=== PATIENT | male | born 1995 | race Caucasian/White ===

== ENCOUNTER → 2016-10-24 | Outpatient (CLI) | payer OTHER ==
--- NOTE | 2016-10-24 09:02 | US ---
EXAMINATION TYPE: US renal artery duplex complet DATE OF EXAM: 10/24/2016 COMPARISON: NONE CLINICAL HISTORY: I10 Essential Hypertension. HTN x 2 years MEASUREMENTS: RENAL SIZE: Rt Kidney: 10.0 x 4.9 x 4.4cm Lt Kidney: 11.7 x 4.2 x 5.4cm RESISTANCE INDEX Right: 0.56 Left: 0.53 RA/AO RATIO (< 3.5 ) Right: 1.0 Left: 0.9 RA VELOCITY ( < 180 cm/s) Right: 137.8cm/s Left: 125.6cm/s Aorta and renals appear unremarkable. No evidence of renal artery stenosis. Good upstroke at segmenta ls at hilum. Low resistive waveforms noted throughout. IMPRESSION: No evidence of renal artery stenosis.
== END | disposition home or self-care (01) ==
LOC: RADUSWWP 10-21 15:16
PROVIDERS: ATTEND Family Medicine
DX: I10 Essential (primary) hypertension (principal)
CPT/HCPCS: 93975

== ENCOUNTER → 2016-11-24 | Outpatient (CLI) | payer OTHER ==
--- NOTE | 2016-11-24 16:16 | CONS ---
DATE OF CONSULTATION: 11/24/16 21 year old gentleman has been evaluated in the [facility] for difficulties to initiate and maintain sleep. History of present illness/Sleep wake evaluation: SLEEP SCHEDULE: The patient usually goes to bed around 11 or midnight and falls asleep around midnight, sleeps until 9 a.m. on working days and from around 2 a.m. until 10:30 a.m. on weeks. FALLING ASLEEP: It takes him about 1 1/2 hours to fall asleep after he goes to bed. He does not watch t.v. in bedroom. DURING SLEEP: He prefers to sleep on the stomach position. He wakes up from sleep three times. Nobody did not tell him about snoring or changing breathing during sleep although the patient wakes up with dry mouth sometimes and gasping for air. Positive history of panic attack, palpitations, heartburn and sweating. DURING THE DAY/WAKE STATE: The patient experiencing symptoms of restless legs in the evening and at bedtime. Sometimes he needs to move his legs to decrease some uncomfortable sensation. During the day he is staying for a long period of time without movements of his legs, he developing uncomfortable sensation and started to move his legs. He has significant amount of nightmares during sleep at a different time of the night. In the morning, the patient wakes up tired, has difficulties to pay attention, worry about his sleep, has problems with memory, concentration, irritability, depression, anxiety, claustrophobia. [place] sleep scale 6. Past medical history positive for hypertension, chronic migraine, episodes of fatigue, dizziness, tumor of the nose in childhood. Past surgical history: [place] tooth removed. Social history: Positive for smoking for less than one pack a day for about one year. He does not smoke at the present time. Alcohol consumption rarely. REVIEW OF SYSTEMS: Difficulties to initiate sleep. Awakening from sleep with difficulties to fall asleep. Nightmares. No fevers. No double vision. No recent chest pain. No shortness of breath. No abdominal pain. No bleeding episodes. No blood in urine. No seizure episodes. FAMILY HISTORY: Hypertension, heart problems, hyperlipidemia, fibromyalgia, ( ) sinus headaches, ( ) lung problems, snoring, cancer, insomnia, acid reflux, ulcers, diabetes, thyroid problems, anemia, mental illness, restless legs. During physical exam, 21 year old gentleman without distress. BP 135 /105. HR 98, RR 16, height 6 feet 0 inches, weight 264. BMI 45.8. Neck 16 3/4 inches in circumference. Temperature 98.2. Oxygen saturation 98%. Oropharynx extremely moderately low position of soft palate. Normal distance between soft palate and posterior pharyngeal wall. Nose isometric. Possible nasoseptum deviation. ABDOMEN: Soft and nontender. Bowel sounds are present. No organomegaly appreciated. Extremities very minimal up to 1+ ankle edema on the left. NECK: Supple. No JVD. Thyroid is not palpable. LUNGS: Clear to auscultation and percussion. Good air exchange. No wheezing or rhonchi. HEART: S1, S2 regular. No murmurs, gallops or rubs. 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 Cranial nerves 2 thru 7 intact. There is no fasciculation or atrophy noted. No focal deficits observed. Other physical examination normal. IMPRESSION: 1. Moderately low position of soft palate, isometric nose with slight restriction of nasal breathing. Awakening from sleep with dry mouth and sometimes episodes of gasping for air, rule out obstructive sleep apnea/ hypopnea syndrome. 2. Chronic migraine. 3. Nightmares. 4. Restless leg syndrome which could be participating factor to initiate sleep. 5. Episodes of dizziness. 6. Possible nasoseptum deviation. PLAN: 1. Polysomnography for evaluation of patient's breathing during sleep. 2. CPAP/BIPAP titration if sleep study confirms obstructive sleep apnea/ hypopnea syndrome. 3. Preferable position during sleep on the side. 4. No driving if feels any sleepiness. Patient is aware of civil and criminal liability for unsafe driving. 5. I will see the patient for follow up visit to explain the results of the testing and following plan. Thank you very much for referring this patient for consultation. Sincerely, Ravi Lawton MD, PhD, FAASM. Diplomat of [place] [employer]. Sleep Medicine Board by [place]. Clinical Professor of [facility] [employer]. ANIYA
== END | disposition home or self-care (01) ==
LOC: SLEEP 14:34
PROVIDERS: ATTEND Internal Medicine
DX: G47.00 Insomnia, unspecified (principal); F51.5 Nightmare disorder; G43.909 Migraine, unspecified, not intractable, without status migrainosus; G25.81 Restless legs syndrome
CPT/HCPCS: 99211

== ENCOUNTER → 2016-12-08 | Outpatient (CLI) | payer OTHER ==
--- NOTE | 2016-12-09 07:34 | PN ---
DATE OF SERVICE: 12/08/2016 A 21-year-old gentleman who has been followed in the Sleep Center to discuss his results of diagnostic sleep study and plan of the treatment. I discussed results of diagnostic sleep study with patient in details. Not any significant risk or other abnormalities. Normal oxygenation during the sleep. No significant periodic limb movements have been documented. Sleep efficiency 75.7% which is slightly below normal. Latency to sleep onset was 20 minutes which is acceptable. Normal amount of delta sleep, amount of REM sleep decreased because patient had some awakening at the middle of the night. Presently patient's sleep schedule from around 11 - 12 until 10 - 11 a.m. Sometimes patient wakes up in the middle of the night and has difficulties to fall asleep again. Sometimes difficult to fall asleep at the beginning of the night. MEDICATIONS: Lisinopril, Motrin. During physical exam, patient in no distress. BP 154/76, HR 71, RR 16, height 6 , weight 264, BMI 35.8. HEENT: PERRLA, EOMI. Evaluation of oropharynx showed tongue protrudes midline. NECK: Supple, No JVD. Thyroid is not palpable. LUNGS: Clear to percussion and to auscultation. Good air exchange. No wheezing or rhonchi. HEART: S1, s2 regular. No murmurs, gallops or rubs. ABDOMEN: Soft and nontender. Bowel sounds are present. No organomegaly appreciated. EXTREMITIES: No clubbing or cyanosis. CHECK CLERK: Awake, alert, and oriented x3. Cranial nerves 2 to 7 intact. There is no fasciculation or atrophy noted. No focal deficits observed. IMPRESSION: 1. No significant respiratory abnormalities during the sleep. 2. History of snoring. 3. Possible restless leg syndrome, but no significant periodic limb movements during the sleep study. 4. History of migraine. 5. Difficulties to maintain sleep. PLAN: 1. I discussed with the patient psychological techniques for treatment of insomnia including stimulus control, paradoxical intension, worry time, no watching clock during the night. 2. As much as possible exposure to the bright sunlight in the morning. 3. We discussed with the patient possibility to have slight restriction of bedtime to 7-1/2 to 8 hours. Presently, he is in bed for about 10 - 11 hours. 4. No driving if feeling any sleepiness. Thank you very much for allowing me to participate in the management of your patient. Sincerely, Ravi Lawton MD, PhD, FAASM. Diplomat of [employer], Sleep Medicine Board by [employer] Special Events Assistant of [facility] [place] ANIYA
== END | disposition home or self-care (01) ==
LOC: SLEEP 15:17
PROVIDERS: ATTEND Internal Medicine
DX: G47.9 Sleep disorder, unspecified (principal)

== ENCOUNTER 2017-01-20 15:02 | Emergency (ER) | payer OTHER ==
[2017-01-20] MEDS ORDERED: IPRATROPIUM-ALBUTEROL 3 ML NEB INHALATION STA ×3 (15:16→15:17)
[2017-01-20] MEDS ORDERED: predniSONE 20 MG TAB PO STA (15:16)
--- NOTE | 2017-01-20 15:24 | ED ---
URI HPI - General Chief Complaint: Upper Respiratory Infection Stated Complaint: chest congestion Time Seen by Provider: 01/20/17 15:08 Source: patient Mode of arrival: ambulatory Limitations: no limitations - History of Present Illness Initial Comments: Patient presents with a chief complaint of shortness of breath. Patient states he is going on for about a week now. He describes his shortness of breath is getting worse over the last week. Patient also admits to cough. He states the cough is worse in the morning and progressively gets better throughout the day. Patient has a history of asthma for which she does not currently have any inhalers or nebulizer treatments at home. Patient denies any fever, chills, or night sweats. MD Complaint: cough, rhinorrhea, nasal congestion Onset/Timin -: week(s) Severity: moderate Consistency: constant Improves With: nothing Worsens With: nothing Associated Symptoms: rhinorrhea, nasal congestion, vomiting (Posttussive) - Related Data Home Medications Medication Instructions Recorded Confirmed Lisinopril [Zestril] 5 mg PO HS 01/20/17 01/20/17 Previous Rx's Medication Instructions Recorded Albuterol Inhaler [Ventolin Hfa 1 - 2 puff INHALATION Q6HR PRN #1 01/20/17 Inhaler] inhaler Albuterol Nebulized [Ventolin 2.5 mg INHALATION Q4H #20 nebu 01/20/17 Nebulized] Cetirizine HCl [Zyrtec] 10 mg PO DAILY #30 tab 01/20/17 Doxycycline Hyclate 100 mg PO BID #10 tab 01/20/17 Fluticasone Nasal Wiseman [Flonase 2 spr EA NOSTRIL DAILY #1 bottle 01/20/17 Nasal Wiseman] predniSONE [Deltasone] 20 mg PO DAILY #12 tablet 01/20/17 Allergies Allergy/AdvReac Type Severity Reaction Status Date / Time erythromycin lactobionate Allergy Unknown Verified 01/20/17 15:53 [From Erythrocin] montelukast sodium AdvReac Anaphylaxis Verified 01/20/17 15:53 [From Singulair] Review of Systems ROS Statement: Those systems with pertinent positive or pertinent negative responses have been documented in the HPI. ROS Other: All systems not noted in ROS Statement are negative. Constitutional: Denies: fever, chills Eyes: Denies: vision change ENT: Reports: congestion. Denies: ear pain Respiratory: Reports: cough, dyspnea, wheezes Cardiovascular: Denies: chest pain, palpitations Endocrine: Denies: fatigue Gastrointestinal: Reports: vomiting. 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 History of Any Multi-Drug Resistant Organisms: None Reported Additional Past Surgical History / Comment(s): wisdom teeth and biopsy on jaw Past Psychological History: No Psychological Hx Reported, Anxiety, Depression Smoking Status: Current some day smoker Past Alcohol Use History: Rare Past Drug Use History: None Reported General Exam Limitations: no limitations General appearance: alert, in no apparent distress Head exam: Present: atraumatic, normocephalic Eye exam: Present: normal appearance, PERRL ENT exam: Present: normal exam, mucous membranes moist, other (Clear postnasal drip) Neck exam: Present: normal inspection. Absent: tenderness, lymphadenopathy Respiratory exam: Present: wheezes Cardiovascular Exam: Present: regular rate, normal rhythm GI/Abdominal exam: Present: soft. Absent: distended, tenderness, guarding Rectal exam: Present: deferred Extremities exam: Present: normal inspection Back exam: Present: normal inspection Neurological exam: Present: alert, oriented X3 Psychiatric exam: Present: normal affect, normal mood Skin exam: Present: warm, dry, intact Course Vital Signs 01/20/17 01/20/17 01/20/17 15:06 15:22 15:42 Temperature 98.0 F Pulse Rate 99 96 122 H Respiratory 22 Rate Blood Pressure 143/90 O2 Sat by Pulse 99 Oximetry Medical Decision Making - Medical Decision Making Patient presents with chief complaint of cough and nasal congestion. History and physical examination consistent with ALLERGIC rhinitis, and asthma exacerbation. Patient will get 3 breathing treatments a dose of steroids in the emergency department. On initial evaluation, patient is afebrile, vital signs are otherwise stable. 4:33 PM Chest x-ray shows no acute process. Patient was reassessed at 3 breathing treatments and steroids. He states that he feels he is breathing easier. Exam is improved from initial exam. This time, patient is stable for outpatient management. He was prescribed doxycycline, prednisone, Flonase, cetirizine, albuterol inhaler, and nebulized albuterol. He is instructed to follow up with primary care or to return to the emergency department if symptoms worsen or change Disposition Clinical Impression: Asthmatic bronchitis, Upper respiratory infection, Allergic rhinitis Disposition: HOME SELF-CARE Condition: Good Instructions: Bronchospasm (ED), Acute Bronchitis (ED) Prescriptions: Albuterol Inhaler [Ventolin Hfa Inhaler] 1 - 2 puff INHALATION Q6HR PRN #1 inhaler PRN Reason: Wheezing Albuterol Nebulized [Ventolin Nebulized] 2.5 mg INHALATION Q4H #20 nebu Cetirizine HCl [Zyrtec] 10 mg PO DAILY #30 tab Doxycycline Hyclate 100 mg PO BID #10 tab Fluticasone Nasal Wiseman [Flonase Nasal Wiseman] 2 spr EA NOSTRIL DAILY #1 bottle Referrals: Charu Olvera MD [Primary Care Provider] - 1-2 days
--- NOTE | 2017-01-20 16:10 | XR ---
EXAMINATION TYPE: XR chest 2V DATE OF EXAM: 01/20/2017 CLINICAL HISTORY: pain TECHNIQUE: Frontal and lateral views of the chest are obtained. COMPARISON: 03/20/15 FINDINGS: There is no focal air space opacity, pleural effusion, or pneumothorax seen. The cardiac silhouette size is within normal limits. The osseous structures are intact. IMPRESSION: No acute cardiopulmonary process.
[2017-01-20 16:50] VITALS: BP 135/85; PULSE 96; RESP 18; TEMP 98.5
== END 2017-01-20 16:49 | disposition home or self-care (01) ==
LOC: EC 15:02
DX: J45.909 Unspecified asthma, uncomplicated (principal); J06.9 Acute upper respiratory infection, unspecified; I10 Essential (primary) hypertension; F17.200 Nicotine dependence, unspecified, uncomplicated; Z79.899 Other long term (current) drug therapy; Z88.1 Allergy status to other antibiotic agents; Z88.8 Allergy status to other drugs, medicaments and biological substances
CPT/HCPCS: 94640; 71020; 99283; J7512

== ENCOUNTER → 2021-02-23 | Outpatient (CLI) | payer OTHER ==
--- NOTE | 2021-02-23 13:35 | XR ---
EXAMINATION TYPE: XR thoracic spine 2V DATE OF EXAM: 02/23/2021 COMPARISON: NONE HISTORY: Pain TECHNIQUE: 3 views submitted FINDINGS: Alignment is anatomic. There is no compression deformities. Vertebral body height and disc interspa basil are maintained. Curvature of the spine with hypertrophic and multilevel degenerative disc diseas e. Correlate for subtle scoliosis. IMPRESSION: 1. No acute abnormality. Scoliosis.
--- NOTE | 2021-02-23 13:36 | XR ---
EXAM TYPE: LUMBAR SPINE X RAY SERIES COMPARISON: NONE HISTORY: Pain TECHNIQUE: 4 views are submitted. FINDINGS: Alignment is anatomic. The pedicles are intact. The transverse processes are intact. There is no s pondylolisthesis. Vertebral body height and disc interspaces are fairly well preserved. Cannot exclud e very mild degenerative disc disease at levels L3-L5.. IMPRESSION: 1. Correlate for very mild multilevel degenerative disc disease.
--- NOTE | 2021-02-23 13:48 | XR ---
EXAMINATION TYPE: XR cervical spine comp DATE OF EXAM: 02/23/2021 COMPARISON: NONE HISTORY: Pain TECHNIQUE: Four views are submitted. FINDINGS: The odontoid is intact. There are no compression deformities. The prevertebral soft tissue structur es are within normal limits. Curvature of the cervical thoracic spine compatible scoliosis and there are bilateral lower cervical ribs. Neural foramina patent. Vertebral body height and disc interspace maintained. IMPRESSION: 1. Scoliosis of the cervical thoracic spine. Correlate with MRI as clinically warranted..
--- NOTE | 2021-02-23 14:17 | XR ---
Right leg HISTORY: M79.604 M54.9 Frontal lateral views of the right leg on 4 images Bone mineralization, joint spaces and alignment are maintained. No fracture or dislocation. There is a soft tissue calcification anterior to the mid diaphyseal the proximal diaphyseal right tibia in the subcutaneous fat measuring approximately 1 cm which shows nonaggressive appearance, smooth margins. IMPRESSION: Normal right tibia and fibula. Soft tissue calcification shows a benign appearance, may r epresent sebaceous cyst or possibly vascular calcification or dystrophic calcification, possible prio r trauma
== END | disposition home or self-care (01) ==
LOC: RADXRMAIN 12:06
PROVIDERS: ATTEND Pediatrics
DX: M41.83 Other forms of scoliosis, cervicothoracic region (principal); M79.89 Other specified soft tissue disorders; M79.604 Pain in right leg
CPT/HCPCS: 72050; 72070; 72100